=== PATIENT | male | born 1995 | race Caucasian/White ===

== ENCOUNTER 2018-08-05 00:07 | Emergency (ER) | payer SELFPAY ==
[~2018-08-05] VITALS: Ht 182.9 cm; Wt 63.5 kg
[2018-08-05 00:15] VITALS: BP 161/95
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
[2018-08-05 00:43] VITALS: BP 161/95
== END 2018-08-05 00:47 ==
LOC: EMR 00:46
DX: Z02.89 Encounter for other administrative examinations (principal); H10.213 Acute toxic conjunctivitis, bilateral; R51 Headache
CPT/HCPCS: 99283